=== PATIENT | female | born 1950 | race Hispanic/Latino ===

== ENCOUNTER 2017-07-13 02:24 | Emergency (ER) | payer MEDICARE, OTHER ==
[~2017-07-13] VITALS: Ht 149.9 cm; Wt 59.4 kg
[~2017-07-13 02:24] MED LIST: LEVOTHYROXINE75 MCG PO; NEXIUM40 MG PO; OMEPRAZOLE40 MG PO; PEPCID20 MG PO; PYLERA CAPSULE1 EACH PO; QUESTRAN PACKET4 GM PO; ZYRTEC10 MG PO
[2017-07-13] MEDS ORDERED: PANTOPRAZOLE 40 MG 10ML VIAL IV STA (02:28)
[2017-07-13] MEDS ORDERED: SODIUM CHLORIDE 0.9% 1000ML 1,000 ML IV STA (02:28)
[2017-07-13] MEDS ORDERED: ONDANSETRON HCL INJ 2 MG/ML VIAL IV STA (02:28)
[2017-07-13] MEDS ORDERED: ACETAMINOPHEN 1000 MG/100 ML IV STA (02:28)
[2017-07-13] MEDS ORDERED: KETOROLAC TROMETHAMINE 30 MG/ML VIAL IV STA (02:28)
[2017-07-13 03:01] LABS: HEMOGLOBIN 14.7 g/dL (12.0-16.0); MEAN CORPUSCULAR HEMOGLOBIN 31.3 pg (28-32); MEAN CORPUSCULAR HGB CONC 34.2 g/dL (31-35); MEAN CORPUSCULAR VOLUME 91.5 fL (81-99); PLATELET COUNT 222 x10e3/uL (140-360); RED CELL DISTRIBUTION WIDTH 12.8 % (11.7-14.4)
[2017-07-13 03:02] LABS: BASOPHILS % 0.4 % (0.0-1.0); EOSINOPHILS % 0.4 % (0.0-6.0); LYMPHOCYTES # (AUTO) 0.7 (1.0-3.2); LYMPHOCYTES % 6.6 % (18.0-39.1); MONOCYTES # (AUTO) 1.1 (0.2-0.8); MONOCYTES % 10.3 % (4.4-11.3); NEUTROPHILS # (AUTO) 8.3 (2.1-6.9); NEUTROPHILS % 81.7 % (38.7-80.0)
--- NOTE | 2017-07-13 03:02 | Diagnostic Imaging Report ---
EXAM: CHEST 2 VIEWS, PA and lateral DATE: 07/13/2017 2:28 AM Time stamp on exam: 2330 hours INDICATION: Cough, fever, bodyaches COMPARISON: None FINDINGS: LINES/TUBES: None LUNGS: No consolidations or edema. PLEURA: No effusions or pneumothorax. HEART AND MEDIASTINUM: Normal size and contour. BONES AND SOFT TISSUES: No acute findings. Surgical clips right upper quadrant of the abdomen. IMPRESSION: No consolidative pneumonia. Signed by: Dr. Clarissa Manriquez M.D. on 07/13/2017 2:59 AM
[2017-07-13 03:14] LABS: INR 0.95; PROTHROMBIN TIME 13.2 seconds (11.9-14.5)
[2017-07-13 03:15] LABS: PARTIAL THROMBOPLASTIN TIME 37.7 seconds (23.8-35.5)
[2017-07-13 03:18] LABS: STREPTOCOCCUS GRP A ANTIGEN NEGATIVE (NEGATIVE)
[2017-07-13 03:20] LABS: ALANINE AMINOTRANSFERASE 26 IU/L (0-55); ALBUMIN 4.2 g/dL (3.5-5.0); ALKALINE PHOSPHATASE 67 IU/L (40-150); BLOOD UREA NITROGEN 11 mg/dL (7-26); BUN/CREATININE RATIO 13 (6-25); CALCIUM 9.4 mg/dL (8.4-10.2); CHLORIDE 104 mmol/L (98-107); CREATINE KINASE 71 IU/L (29-168); CREATININE, SERUM 0.85 mg/dL (0.57-1.11); EST GLOMERULAR FILTRATION RATE > 60 ML/MIN (60-); GLUCOSE 144 mg/dL (74-118); MAGNESIUM 2.2 MG/DL (1.3-2.1); SODIUM 137 mmol/L (136-145)
[2017-07-13 03:28] LABS: INFLUENZAE A&B ANTIGEN (RAPID) POSITIVE FLU A (NEGATIVE)
[2017-07-13 03:54] LABS: CARBON DIOXIDE 20 mmol/L (22-29)
[2017-07-13 04:18] LABS: THYROID STIMULATING HORMONE 2.756 uIU/mL (0.350-4.940); TROPONIN I 0.002 ng/mL (0-0.300)
== END 2017-07-13 05:41 | disposition home or self-care (01) ==
LOC: ER 02:24
DX: R50.9 Fever, unspecified (principal); R05 Cough; J09.X2 Influenza due to identified novel influenza A virus with other respiratory manifestations; I10 Essential (primary) hypertension; E03.9 Hypothyroidism, unspecified
CPT/HCPCS: 36415; 71020; 80053; 82550; 82553; 83518; 83605; 83735; 84443; 84484; 85025; 85610; 85730; 87040; 87070; 87400; 93005; 99284; J1885; J2405; J7030

== ENCOUNTER 2017-07-19 16:40 | Emergency (ER) | payer MEDICARE ==
[~2017-07-19] VITALS: Ht 149.9 cm; Wt 61.2 kg
[2017-07-19] MEDS ORDERED: PROAIR HFA INH8.5 GM INH (17:17)
[2017-07-19] MEDS ORDERED: PREDNISONE20 MG PO (17:17)
== END 2017-07-19 19:30 | disposition left against medical advice (07) ==
LOC: ER 16:40
DX: R69 Illness, unspecified (principal); Z53.21 Procedure and treatment not carried out due to patient leaving prior to being seen by health care provider

== ENCOUNTER 2017-07-25 04:54 | Emergency (ER) | payer MEDICARE ==
[~2017-07-25] VITALS: Ht 149.9 cm; Wt 61.2 kg
[~2017-07-25 04:54] MED LIST changes: +PREDNISONE20 MG PO; +PROAIR HFA INH8.5 GM INH
[2017-07-25 06:33] VITALS: BP 132/80
--- NOTE | 2017-07-25 06:52 | Diagnostic Imaging Report ---
EXAMINATION: CHEST 2 VIEWS INDICATION: Cough, back pain COMPARISON: 07/12/2017 FINDINGS: TUBES and LINES: None. LUNGS: Lungs are well inflated. Lungs are clear. There is no evidence of pneumonia or pulmonary edema. PLEURA: No pleural effusion or pneumothorax. HEART AND MEDIASTINUM: The cardiomediastinal silhouette is unremarkable. BONES AND SOFT TISSUES: No acute osseous lesion. Soft tissues are unremarkable. UPPER ABDOMEN: No free air under the diaphragm. There are cholecystectomy clips. IMPRESSION: No acute thoracic abnormality. Signed by: Dr. Chriss Bernal M.D. on 07/25/2017 6:48 AM
== END 2017-07-25 06:39 | disposition home or self-care (01) ==
LOC: ER 04:54
DX: R05 Cough (principal); J30.2 Other seasonal allergic rhinitis; I10 Essential (primary) hypertension; E03.9 Hypothyroidism, unspecified; K21.9 Gastro-esophageal reflux disease without esophagitis
CPT/HCPCS: 71020; 87400; 93005; 99283

== ENCOUNTER 2017-08-17 07:03 | Emergency (ER) | payer MEDICARE ==
[~2017-08-17] VITALS: Ht 154.9 cm; Wt 62.1 kg
--- NOTE | 2017-08-17 08:12 | Diagnostic Imaging Report ---
PROCEDURE:X-RAY RIGHT SHOULDER, COMPLETE COMPARISON:None. INDICATIONS:FALL FINDINGS: There are no fractures, dislocations, lytic or blastic lesions. There is no evidence of dislocation. Mild irregularity and degenerative change about the greater tuberosity. The bones are well-mineralized. Staple overlies the cervical spine. The soft-tissues are unremarkable. CONCLUSION: No acute bony abnormality. Osiel Goff D.O. Dictated by: Osiel Goff D.O. on 08/17/2017 at 8:20 Electronically approved by: Osiel Goff D.O. on 08/17/2017 at 8:20
[2017-08-17 08:29] VITALS: BP 150/70
== END 2017-08-17 08:32 | disposition home or self-care (01) ==
LOC: ER 07:03
DX: S40.011A Contusion of right shoulder, initial encounter (principal); W06.XXXA Fall from bed, initial encounter; Y92.013 Bedroom of single-family (private) house as the place of occurrence of the external cause
CPT/HCPCS: 99283

== ENCOUNTER 2017-09-03 22:40 | Emergency (ER) | payer MEDICARE ==
[~2017-09-03] VITALS: Ht 154.9 cm; Wt 62.1 kg
--- OUTSIDE RECORDS SUMMARY | 2017-09-03 22:43 | XMS REPORT ---
Author Author [facility] Address Unknown Phone Unavailable Care Team Providers Care Container Filler Name Role Phone MAGDIEL MILLAN Unavailable Unavailable JOSE L SANTIAGO Unavailable Unavailable BETTY AN Unavailable Unavailable Problems This patient has no known problems. Allergies, Adverse Reactions, Alerts This patient has no known allergies or adverse reactions. Medications This patient has no known medications. Results Test Description Test Time Test Comments Text Results Atomic Results Result Comments SHOULDER RIGHT COMPLETE [facility] [address] [address] Patient Name: YADIRA CORONEL MR #: [id number] : 1950 Age/Sex: 67/F Req #: [id number] [facility] Physician: Ordered by: MAGDIEL MILLAN MD Report #: [id number] Location: ER Room/Bed: Procedure: [id number] DX/SHOULDER RIGHT COMPLETE Exam Date: 08/17/17 Exam Time: 0730 REPORT STATUS: Signed PROCEDURE: X- RAY RIGHT SHOULDER, COMPLETE COMPARISON: None. INDICATIONS: FALL FINDINGS: There are no fractures, dislocations, lytic or blastic lesions. There is no evidence of dislocation. Mild irregularity and degenerative change about the greater tuberosity. The bones are well- mineralized. Staple overlies the cervical spine. The soft-tissues are unremarkable. CONCLUSION: No acute bony abnormality. Rola Goff D.O. Dictated by: Rola Goff D.O. on 08/17/2017 at 8:20 Electronically approved by: Rola Goff D.O. on 08/17/2017 at 8:20 Dictated By: ROLA GOFF DO 0 Transcribed By: KENDRA on 08/17/17820 COPY TO: MAGDIEL MILLAN MD CHEST 2 V[address]WS [address] [address] Patient Name: YADIRA CORONEL MR #: [id number] : 1950 Age/Sex: 67/F Req #: [id number] Adm Physician: Ordered by: JOSE L SANTIAGO MD Report #: [id number] Location: ER Room/Bed: Procedure: [id number] DX/CHEST 2 VIEWS Exam Date: Exam Time: REPORT STATUS: Signed EXAMINATION: CHEST 2 VIEWS INDICATION: Cough, back pain COMPARISON: 07/12/2017 FINDINGS: TUBES and LINES: None. LUNGS: Lungs are well inflated. Lungs are clear. There is no evidence of pneumonia or pulmonary edema. PLEURA: No pleural effusion or pneumothorax. HEART AND MEDIASTINUM: The cardiomediastinal silhouette is unremarkable. BONES AND SOFT TISSUES: No acute osseous lesion. Soft tissues are unremarkable. UPPER ABDOMEN: No free air under the diaphragm. There are cholecystectomy clips. IMPRESSION: No acute thoracic abnormality. Signed by: Dr. Chriss Bernal M.D. on 07/25/2017 6:48 AM Dictated By: CHRISS AMOS MD 7 Transcribed By: RADHA on 07/25/17647 COPY TO: JOSE L SANTIAGO MD CHEST 2 VIEWS [address] [address] Patient Name: YADIRA CORONEL MR #: [id number] : 1950 Age/Sex: 67/F Req #: [id number] Adm Physician: Ordered by: BETTY AN MD Report #: [id number] Location: ER Room/Bed: Procedure: [id number] DX/CHEST 2 VIEWS Exam Date: 07/13/17 Exam Time: 4 REPORT STATUS: Signed EXAM: CHEST 2 VIEWS, PA and lateral DATE: 07/13/2017 2:28 AM Time stamp on exam: 2330 hours INDICATION: Cough, fever, bodyaches COMPARISON: None FINDINGS: LINES/TUBES: None LUNGS: No consolidations or edema. PLEURA: No effusions or pneumothorax. HEART AND MEDIASTINUM: Normal size and contour. BONES AND SOFT TISSUES: No acute findings. Surgical clips right upper quadrant of the abdomen. IMPRESSION : No consolidative pneumonia. Signed by: Dr. Chava Manriquez M.D. on 07/13/2017 2:59 AM Dictated By: CHAVA MANRIQUEZ MD 8 Transcribed By: RADHA on 258 COPY TO: BETTY AN MD
--- OUTSIDE RECORDS SUMMARY | 2017-09-03 22:43 | XMS REPORT | Clinical Summary ---
Author Author [facility] Address Unknown Phone Unavailable Care Team Providers Care Registered Safety Engineer Name Role Phone PCP Unavailable Allergies Active Allergy Reactions Severity Noted Date Comments Amoxicillin Hives 12/03/2016 itching Sulfamethoxazole-Trimetho Hives 12/03/2016 Itching prim Clindamycin Hives 12/03/2016 itching Doxycycline Hives 12/03/2016 itching Metronidazole Hcl Hives 12/03/2016 itching Levofloxacin Hives 12/03/2016 itching Nitrofurantoin Hives 12/03/2016 itching Monohyd/M-Cryst Penicillins Hives 12/03/2016 itching Current Medications Prescription Sig. Disp. Refills Start End Date Status Date levothyroxine (SYNTHROID, Take 175 mcg by mouth 12/05/19 Discontin LEVOTHROID) 175 MCG Every morning on an empty 17 ued tabletIndications: stomach. hypothyroidism Active Problems Not on file Encounters Date Type Specialty Care Team Description 12/04/2016 Anesthesia Kevin Kulkarni Event after 09/02/2016 Social History Tobacco Use Types Packs/Day Years Used Date Former Smoker Smokeless Tobacco: Never Used Tobacco Cessation: Counseling Given: No Alcohol Use Drinks/Week oz/Week Comments No Sex Assigned at Date Recorded Not on file Last Filed Vital Signs Vital Sign Reading Time Taken Blood Pressure - - Pulse - - Temperature - - Respiratory Rate - - Oxygen Saturation - - Inhaled Oxygen - - Concentration Weight 59.4 kg (131 lb) 12/03/2016 12:00 PM CDT Height 154.9 cm (5' 1") 12/03/2016 12:00 PM CDT Body Mass Index 24.75 12/03/2016 12:00 PM CDT Plan of Treatment Not on file Results Not on fileafter 09/02/2016
[2017-09-03] MEDS ORDERED: FAMOTIDINE 20 MG TAB PO ONE (23:00)
[2017-09-03] MEDS ORDERED: METHYLPREDNISOLONE SOD SUCC 125 MG/2ML VIAL IM ONE (23:00)
== END 2017-09-03 23:54 | disposition home or self-care (01) ==
LOC: ER 22:40
DX: R21 Rash and other nonspecific skin eruption (principal); I10 Essential (primary) hypertension; E03.9 Hypothyroidism, unspecified; K21.9 Gastro-esophageal reflux disease without esophagitis
CPT/HCPCS: 99283; J2930

== ENCOUNTER 2017-09-04 14:45 | Emergency (ER) | payer MEDICARE ==
[~2017-09-04] VITALS: Ht 154.9 cm; Wt 62.1 kg
--- OUTSIDE RECORDS SUMMARY | 2017-09-04 14:48 | XMS REPORT | Clinical Summary ---
Author Author [facility] Address Unknown Phone Unavailable Care Team Providers Care Wash Tank Tender Name Role Phone PCP Unavailable Allergies Active [...] Description 12/04/2016 Anesthesia Kevin Kulkarni Event after 09/03/2016 Social History Tobacco Use Types Packs/Day Years [...] Not on file Results Not on fileafter 09/03/2016
--- OUTSIDE RECORDS SUMMARY | 2017-09-04 14:48 | XMS REPORT | Continuity of Care Document ---
Author Author [facility] Organization [facility] Address [address] [place] [address] Phone Unavailable Care Team Providers Care Chimney Mechanic Name Role Phone ESPINOZA TIM M.D. PCP Insurance Providers Guarantor Yadira Munoz Address [address] [place] [address] Email NONE Payer [employer] Policy Number [id number] Subscriber's Name Yadira Munoz Relationship 18 Self / Same As Patient Effective Date 16 Payer [facility] Policy Number [id number] Subscriber's Name MunozYadira Relationship 18 Self / Same As Patient Effective Date 15 Advance Directives Directive Response Recorded Date/Time Does the patient have an advance directive? No 06/09/15 10:05pm If yes, is advance directive on file with [facility]? No 06/09/15 10:05pm If not on file with [facility] will patient provide a copy? Yes 01/02/16 6:51pm Do you have a Directive to Physician? No 09/03/17 11:21pm Do you have a Medical Power of Installers Mechanical? No 09/03/17 11:21pm Do you have an out of hospital Do Not Resuscitate Order? No 09/03/17 11:21pm Do you have any special needs we should be aware of? No 09/03/17 11:21pm Do you have a support person here with you today? Yes 09/03/17 11:21pm Did patient receive Notice of Privacy Practices? Yes 09/03/17 11:21pm Did patient receive patient rights and responsibilities? Yes 09/03/17 11:21pm Problems Medical Problem Onset Date Status Allergic reaction Unknown Acute Colitis 06/09/2015 Acute Influenza B Unknown Acute Pharyngitis Unknown Acute UTI (urinary tract infection) 06/09/2015 Acute Upper respiratory infection Unknown Acute Medications Current Home Medications Medication Dose Units Route Directions Days Qty Instructions Start Date Albuterol Sulfate (Proair Hfa Inhaler*) 8.5 Gm Inh 1 Inh Inhalation Every 4 Hours Cetirizine Hcl (Zyrtec) 10 Mg Tablet 10 Mg Oral Daily THERAPEUTICALLY SUBSTITUTED WITH LORATADINE 10MG Levothyroxine Sodium 75 Mcg Tablet 75 Mcg Oral Daily 30 Tab Omeprazole 40 Mg Capsule.dr 40 Mg Oral Daily Prednisone 20 Mg Tab 40 Mg Oral Daily Past Home Medications Medication Directions Ordered Status Bismuth/Metronid/Tetracycline (Pylera Capsule) 1 Each Capsule, 1 Cap Oral Three Times A Day Discontinued Cholestyramine (With Sugar) (Questran Packet) 4 Gm Packet, 4 Gm Oral Daily Discontinued Esomeprazole Magnesium (Nexium) 40 Mg Capsule.dr, 40 Mg Oral Daily Discontinued Famotidine (Pepcid) 20 Mg Tablet, 20 Mg Oral Twice A Day Discontinued Social History Social History Problem Response Recorded Date/Time Onset Date Status Hx Psychiatric Problems No 06/09/2015 10:05pm Not Applicable Not Applicable Hx Eating Disorder No 06/09/2015 10:05pm Not Applicable Not Applicable Hx Substance Use Disorder No 06/09/2015 10:05pm Not Applicable Not Applicable Hx Depression No 06/09/2015 10:05pm Not Applicable Not Applicable Hx Alcohol Use No 06/09/2015 10:05pm Not Applicable Not Applicable Hx Substance Use Treatment No 06/09/2015 10:05pm Not Applicable Not Applicable Hx Physical Abuse No 06/09/2015 10:05pm Not Applicable Not Applicable Smoking Status Start Date Stop Date Never Smoker Hospital Discharge Instructions No hospital discharge instruction information available. Plan of Care Discharge Date 09/03/17 11:54pm Disposition HOME, SELF-CARE Condition at Discharge Stable Instructions/Education Provided Allergic Reaction Forms Provided Work/School Excuse Prescriptions See Medication Section Additional Instructions/Education DISCONTINUE USE OF GRISEOFULVIN FOLLOW UP WITH PRIMARY CARE PHYSICIAN TOMORROW PER ER MD, TAKE OVER THE COUNTER BENADRYL AND PEPCID DIRECTED FOR NEXT 2 DAYS Functional Status No functional status information available. Allergies, Adverse Reactions, Alerts Allergen Type Severity Reaction Status Last Updated Iodinated Contrast- Oral and IV Dye Allergy Unknown ITCHING Active Penicillin Allergy Unknown ITCHING Active 08/17/17 Morphine Allergy Intermediate hives Active 08/17/17 Ampicillin Allergy Unknown ITCHING Active 08/17/17 Cephalexin Allergy Unknown ITCHING Active 08/17/17 Tetracycline Allergy Unknown ITCHING, HTN Active 08/17/17 Erythromycin base Allergy Unknown ITCHING Active 08/17/17 Nitrofurantoin Allergy Unknown ITCHING Active 08/17/17 Ciprofloxacin Allergy Severe SOB, ITCHING Active 08/17/17 Griseofulvin Allergy Intermediate Active 09/03/17 Levofloxacin Allergy Unknown ITCHING Active 08/17/17 BACTRIM] Allergy Mild ITCHING Active 04/24/16 SULFA Allergy Unknown ITCHING, HEADACHE Active 04/24/16 Immunizations No immunization information available. Vital Signs Acute Vital Signs Vital Response Date/Time Temperature (Fahrenheit) 98.1 degrees F (97.6 - 99.5) 08/17/2017 8:29am Pulse Pulse Rate (adult) 79 bpm (60 - 90) 08/17/2017 8:29am Respiratory Rate 18 bpm (12 - 24) 08/17/2017 8:29am Blood Pressure 150/70 mm Hg 08/17/2017 8:29am Height 5 ft 1 in 09/03/2017 10:59pm Weight 137 lb 09/03/2017 10:59pm Body Mass Index 25.9 kg/m^2 09/03/2017 10:59pm Results Laboratory Results Test Name Result Units Flags Reference Collection Date/Time Result Date/ Time Comments White Blood Count 10.16 x10e3/uL 4.8-10.8 07/13/2017 2:41am 07/13/2017 3:16am Red Blood Count 4.70 x10e6/uL 3.6-5.1 07/13/2017 2:41am 07/13/2017 3: 16am Hemoglobin 14.7 g/dL 12.0-16.0 07/13/2017 2:4107/13/2017 3:16am Hematocrit 43.0 % 34.2-44.1 07/13/2017 2:41am 07/13/2017 3:16am Mean Corpuscular Volume 91.5 fL 81-99 07/13/2017 2:41am 07/13/2017 3: 16am Mean Corpuscular Hemoglobin 31.3 pg 28-32 07/13/2017 2:41am 07/13/2017 3:16am Mean Corpuscular Hemoglobin Concent 34.2 g/dL 31-35 07/13/2017 2:41am 07/13/2017 3:16am Red Cell Distribution Width 12.8 % 11.7-14.4 07/13/2017 2:412016 3:16am Platelet Count 222 x10e3/uL 140-360 07/13/2017 2:4107/13/2017 3: 16am Neutrophils (%) (Auto) 81.7 % H 38.7-80.0 07/13/2017 2:4107/13/2017 3 :16am Lymphocytes (%) (Auto) 6.6 % L 18.0-39.1 07/13/2017 2:4107/13/2017 3: 16am Monocytes (%) (Auto) 10.3 % 4.4-11.3 07/13/2017 2:4107/13/2017 3: 16am Eosinophils (%) (Auto) 0.4 % 0.0-6.0 07/13/2017 2:4107/13/2017 3: 16am Basophils (%) (Auto) 0.4 % 0.0-1.0 07/13/2017 2:4107/13/2017 3:16am IM GRANULOCYTES % 0.6 % 0.0-1.0 07/13/2017 2:4107/13/2017 3:16am Neutrophils # (Auto) 8.3 H 2.1-6.9 07/13/2017 2:4107/13/2017 3: 16am Lymphocytes # (Auto) 0.7 L 1.0-3.2 07/13/2017 2:41am 07/13/2017 3: 16am Monocytes # (Auto) 1.1 H 0.2-0.8 07/13/2017 2:41am 07/13/2017 3:16am Eosinophils # (Auto) 0.0 0.0-0.4 07/13/2017 2:41am 07/13/2017 3:16am Basophils # (Auto) 0.0 0.0-0.1 07/13/2017 2:41am 07/13/2017 3:16am Absolute Immature Granulocyte (auto 0.06 x10e3/uL 0-0.1 07/13/2017 2: 41am 07/13/2017 3:16am Prothrombin Time 13.2 seconds 11.9-14.5 07/13/2017 2:41am 07/13/2017 3: 15am Prothromb Time International Ratio 0.95 07/13/2017 2:41am 2016 3:15am Oral Anticoagulant Therapy INR Values: 1. Low Intensity Therapy 1.5 - 2.0 2. Moderate Intensity Therapy 2.0 - 3.0 3. High Intensity Therapy(1) 2.5 - 3.5 4. High Intensity Therapy(2) 3.0 - 4.0 5. Panic Value INR > 5.0 Activated Partial Thromboplast Time 37.7 seconds H 23.8-35.5 07/13/2017 2 :41am 07/13/2017 3:16am Sodium Level 137 mmol/L 136-145 07/13/2017 2:41am 07/13/2017 3:26am Potassium Level 4.0 mmol/L 3.5-5.1 07/13/2017 2:4107/13/2017 3:26am Chloride Level 104 mmol/L 98-107 07/13/2017 2:41am 07/13/2017 3:26am Carbon Dioxide Level 20 mmol/L L 22-29 07/13/2017 2:41am 07/13/2017 4: 00am Anion Gap 17.0 mmol/L H 8-16 07/13/2017 2:41am 07/13/2017 4:00am Blood Urea Nitrogen 11 mg/dL 7-07/13/2017 2:41am 07/13/2017 3:26am Creatinine 0.85 mg/dL 0.57-1.11 07/13/2017 2:41am 07/13/2017 3:26am BUN/Creatinine Ratio 13 6-07/13/2017 2:41am 07/13/2017 3:26am Estimat Glomerular Filtration Rate > 60 ML/MIN 60- 07/13/2017 2:41am 3:26am Ranges were taken from the National Kidney Disease Education Program and the National Kidney Foundation literature. Reference ranges: 60 or greater: Normal 16-59 (for 3 consecutive months): Chronic kidney disease 15 or less: Kidney failure Glucose Level 144 mg/dL H 74-118 07/13/2017 2:41am 07/13/2017 3:26am Calcium Level 9.4 mg/dL 8.4-10.2 07/13/2017 2:41am 07/13/2017 3:26am Lactic Acid Level 9.7 MG/DL 4.5-19.8 07/13/2017 2:4107/13/2017 3: 18am Magnesium Level 2.2 MG/DL H 1.3-2.1 07/13/2017 2:4107/13/2017 3:26am Total Bilirubin 0.4 mg/dL 0.2-1.2 07/13/2017 2:41am 07/13/2017 3:26am Aspartate Amino Transf (AST/SGOT) 30 IU/L 5-34 07/13/2017 2:41am 2016 3:26am Alanine Aminotransferase (ALT/SGPT) 26 IU/L 0-55 07/13/2017 2:41am 3:26am Total Protein 8.4 g/dL H 6.5-8.1 07/13/2017 2:41am 07/13/2017 3:26am Albumin 4.2 g/dL 3.5-5.0 07/13/2017 2:41am 07/13/2017 3:26am Globulin 4.2 g/dL H 2.3-3.5 07/13/2017 2:41am 07/13/2017 3:26am Albumin/Globulin Ratio 1.0 0.8-2.0 07/13/2017 2:41am 07/13/2017 3: 26am Alkaline Phosphatase 67 IU/L 40-150 07/13/2017 2:41am 07/13/2017 3: 26am Creatine Kinase 71 IU/L 29-168 07/13/2017 2:41am 07/13/2017 3:26am Creatine Kinase MB 0.50 ng/mL 0.00-5.00 07/13/2017 2:41am 07/13/2017 4: 42am Troponin I 0.002 ng/mL 0-0.300 07/13/2017 2:41am 07/13/2017 4:42am Thyroid Stimulating Hormone (TSH) 2.756 uIU/mL 0.350-4.940 07/13/2017 2: 41am 07/13/2017 4:42am Group A Streptococcus Screen NEGATIVE NEGATIVE 07/13/2017 2:41am 3:18am Influenza Virus Types A,B Antigen NEGATIVE NEGATIVE 07/25/2017 5:07am 07/25/2017 6:11am Microbiology Results Procedure Source Organism/Result Collection Date/Time Result Date/Time Result Status Blood Culture Blood NO GROWTH AFTER 5 DAYS, FINAL REPORT 07/13/2017 2:41am 07/18/2017 2:59am Final Procedures Procedure Status Date Provider(s) X-ray of chest, two views Active 07/13/17 BETTY AN MD X-ray of chest, two views Active 07/25/17 JOSE L SANTIAGO MD Encounters Encounter Location Arrival/Admit Date Discharge/Depart Date Attending Provider Departed Emergency [facility] 09/03/17 10:40pm 09/03 11:54pm JOSE L SANTIAGO MD Departed Emergency [facility] 08/17/17 7:03am 8:32am MAGDIEL MILLAN MD Departed Emergency [facility] 07/25/17 4:54am 6:39am JOSE L SANTIAGO MD Departed Emergency [facility] 07/19/17 4:40pm 7:30pm NUNO ARREOLA MD Departed Emergency Room [facility] 07/13/17 2:24am 5:41am BETTY AN MD Departed Emergency [facility] 11/24/16 8:37pm 1:41am JOSE L SANTIAGO MD
[2017-09-04] MEDS ORDERED: ASPIRIN 81 MG CHEW TAB PO ONE (17:00)
--- NOTE | 2017-09-04 17:58 | Diagnostic Imaging Report ---
PROCEDURE: Frontal and lateral views of the chest. COMPARISON: [facility], , CHEST 2 VIEWS, 07/25/2017, 6:05. INDICATIONS: CHEST PAIN FINDINGS: Lines/tubes: None. Lungs: The lungs are well inflated and clear. There is no evidence of pneumonia or pulmonary edema. Pleura: There is no pleural effusion or pneumothorax. Heart and mediastinum: The cardiac silhouette is mildly enlarged. Bones: No acute bony abnormality. Mild multilevel spondylosis of the thoracic spine. Cholecystectomy clips. IMPRESSION: 1. No acute thoracic abnormality Dori Yanes M.D. Dictated by: Dori Yanes M.D. on 09/04/2017 at 17:57 Electronically approved by: Dori Yanes M.D. on 09/04/2017 at 17:57
[2017-09-04 19:45] LABS: BASOPHILS % 0.1 % (0.0-1.0); HEMATOCRIT 40.3 % (34.2-44.1); HEMOGLOBIN 13.8 g/dL (12.0-16.0); LYMPHOCYTES # (AUTO) 1.4 (1.0-3.2); LYMPHOCYTES % 14.1 % (18.0-39.1); MEAN CORPUSCULAR HEMOGLOBIN 31.4 pg (28-32); MEAN CORPUSCULAR HGB CONC 34.2 g/dL (31-35); MEAN CORPUSCULAR VOLUME 91.6 fL (81-99); MONOCYTES # (AUTO) 0.3 (0.2-0.8); MONOCYTES % 2.7 % (4.4-11.3); NEUTROPHILS % 82.1 % (38.7-80.0); PLATELET COUNT 316 x10e3/uL (140-360); RED CELL DISTRIBUTION WIDTH 12.9 % (11.7-14.4)
[2017-09-04 19:46] LABS: BILIRUBIN,URINE NEGATIVE (NEGATIVE); CLARITY,URINE CLEAR (CLEAR); COLOR,URINE YELLOW (YELLOW); KETONES,URINE NEGATIVE (NEGATIVE); LEUKOCYTE ESTERASE ,URINE TRACE (NEGATIVE); NITRITE,URINE NEGATIVE (NEGATIVE); PROTEIN,URINE DIPSTICK NEGATIVE (NEGATIVE); URINE UROBILINOGEN 0.2 mg/dL (0.2 - 1)
[2017-09-04 19:51] LABS: INR 1.06
[2017-09-04 19:52] LABS: PARTIAL THROMBOPLASTIN TIME 33.6 seconds (23.8-35.5)
[2017-09-04 19:58] LABS: EPITHELIAL CELLS,URINE MODERATE /LPF; WBC,URINE (MAN) 0-5 /HPF (0-5)
[2017-09-04 20:01] LABS: ALANINE AMINOTRANSFERASE 17 IU/L (0-55); ALBUMIN 4.4 g/dL (3.5-5.0); ALKALINE PHOSPHATASE 69 IU/L (40-150); ANION GAP 14.9 mmol/L (8-16); BLOOD UREA NITROGEN 12 mg/dL (7-26); BUN/CREATININE RATIO 16 (6-25); CALCIUM 9.6 mg/dL (8.4-10.2); CARBON DIOXIDE 20 mmol/L (22-29); CHLORIDE 109 mmol/L (98-107); CREATINE KINASE 134 IU/L (29-168); CREATININE, SERUM 0.75 mg/dL (0.57-1.11); EST GLOMERULAR FILTRATION RATE > 60 ML/MIN (60-); GLUCOSE 174 mg/dL (74-118); LIPASE 9 U/L (8-78); MAGNESIUM 2.3 MG/DL (1.3-2.1); POTASSIUM 3.9 mmol/L (3.5-5.1); SODIUM 140 mmol/L (136-145)
[2017-09-04 21:12] VITALS: BP 139/84
== END 2017-09-04 21:16 | disposition home or self-care (01) ==
LOC: ER 14:45
DX: R07.89 Other chest pain (principal); I10 Essential (primary) hypertension; E07.9 Disorder of thyroid, unspecified; K21.9 Gastro-esophageal reflux disease without esophagitis
CPT/HCPCS: 36415; 71046; 80053; 81001; 82550; 82553; 83690; 83735; 83880; 84484; 85025; 85610; 85730; 87086; 93005; 99283

== ENCOUNTER → 2017-09-04 | Emergency (ER) | payer MEDICARE ==
--- OUTSIDE RECORDS SUMMARY | 2017-09-04 14:55 | XMS REPORT | Clinical Summary ---
Author Author [facility] Address Unknown Phone Unavailable Care Team Providers Care Rn Operating Room Name Role Phone PCP Unavailable Allergies Active [...]
== END | disposition left against medical advice (07) ==
LOC: ER 14:52
DX: R07.9 Chest pain, unspecified (principal)

== ENCOUNTER 2017-10-16 13:11 | Emergency (ER) | payer MEDICARE, OTHER ==
[~2017-10-16] VITALS: Ht 154.9 cm; Wt 62.1 kg
--- OUTSIDE RECORDS SUMMARY | 2017-10-16 13:14 | XMS REPORT | Clinical Summary ---
Author Author [facility] Address Unknown Phone Unavailable Care Team Providers Care Labor Training Manager Name Role Phone PCP Unavailable Allergies Active [...] Description 12/04/2016 Anesthesia Kevin Kulkarni Event after 10/15/2016 Social History Tobacco Use Types Packs/Day Years [...] Not on file Results Not on fileafter 10/15/2016
[2017-10-16] MEDS ORDERED: ONDANSETRON HCL INJ 2 MG/ML VIAL IV STA (14:06)
[2017-10-16] MEDS ORDERED: DIPHENHYDRAMINE HCL INJ 50 MG/ML VIAL IV SCH (14:15)
[2017-10-16] MEDS ORDERED: FAMOTIDINE 20 MG/2 ML VIAL IV SCH (14:15)
[2017-10-16] MEDS ORDERED: METHYLPREDNISOLONE SOD SUCC 125 MG/2ML VIAL IV SCH (14:15)
[2017-10-16 16:09] VITALS: BP 139/84
== END 2017-10-16 16:20 | disposition home or self-care (01) ==
LOC: ER 13:11
DX: L50.9 Urticaria, unspecified (principal); I10 Essential (primary) hypertension; K21.9 Gastro-esophageal reflux disease without esophagitis
CPT/HCPCS: 99283; J1200; J2405; J2930

== ENCOUNTER 2017-11-06 14:05 | Emergency (ER) | payer MEDICARE ==
[~2017-11-06] VITALS: Ht 154.9 cm; Wt 62.1 kg
--- OUTSIDE RECORDS SUMMARY | 2017-11-06 14:08 | XMS REPORT | Clinical Summary ---
Author Author [facility] Address Unknown Phone Unavailable Care Team Providers Care Glue Plant Operator Name Role Phone PCP Unavailable Allergies Active [...] Description 12/04/2016 Anesthesia Kevin Kulkarni Event after 11/05/2016 Social History Tobacco Use Types Packs/Day Years [...] Not on file Results Not on fileafter 11/05/2016
--- OUTSIDE RECORDS SUMMARY | 2017-11-06 14:08 | XMS REPORT | Continuity of Care Document ---
Author Author [facility] Organization [facility] Address [address] [place] [address] Phone Unavailable Care Team Providers Care Production Control Clerk Name Role Phone ESPINOZA TIM M.D. PCP Insurance Providers Guarantor Yadira Munoz Address [address] [place] [address] Email NONE Payer [employer] Policy Number [id number] Subscriber's Name Yadira Munoz Relationship 18 Self / Same As Patient Effective Date 16 Payer [facility] Policy Number [id number] Subscriber's Name MunozYadira Relationship 18 Self / Same As Patient Effective Date 15 Advance Directives Directive Response Recorded Date/Time Does the patient have an advance directive? No 06/09/15 10:05pm If yes, is advance directive on file with [facility]? No 06/09/15 10:05pm If not on file with [facility] will patient provide a copy? Yes 01/02/16 6:51pm Problems Medical Problem Onset Date Status Allergic [...] No 06/09/2015 10:05pm Not Applicable Not Applicable Hospital Discharge Instructions No hospital discharge instruction information available. Plan of Care Discharge Date 10/16/17 4:20pm Disposition HOME, SELF-CARE Condition at Discharge Stable Instructions/Education Provided Rash - Nonspecific Forms Provided Work/School Excuse Prescriptions See Medication Section Additional Instructions/Education FOLLOW UP WITH YOUR DOCTOR IN 3 DAYS EVEN IF FEELING BETTER TAKE ALL MEDICATION PRESCRIBED. RETURN TO ER IF WORSE IN ANY WAY Functional Status No functional status information available. Allergies, Adverse Reactions, Alerts Allergen Type Severity Reaction Status Last Updated Iodinated Contrast- Oral and IV Dye Allergy Unknown ITCHING Active Penicillin Allergy Unknown ITCHING Active 09/04/17 Morphine Allergy Intermediate hives Active 09/04/17 Ampicillin Allergy Unknown ITCHING Active 09/04/17 Cephalexin Allergy Unknown ITCHING Active 09/04/17 Tetracycline Allergy Unknown ITCHING, HTN Active 09/04/17 Erythromycin base Allergy Unknown ITCHING Active 09/04/17 Nitrofurantoin Allergy Unknown ITCHING Active 09/04/17 Ciprofloxacin Allergy Severe SOB, ITCHING Active 09/04/17 Griseofulvin Allergy Intermediate Active 09/04/17 Levofloxacin Allergy Unknown ITCHING Active 09/04/17 BACTRIM] Allergy Mild ITCHING Active 04/24/16 SULFA Allergy Unknown ITCHING, HEADACHE Active 04/24/16 Immunizations No immunization information available. Vital Signs Acute Vital Signs Vital Response Date/Time Temperature (Fahrenheit) 97.4 degrees F (97.6 - 99.5) 09/04/2017 9:12pm Pulse Pulse Rate (adult) 81 bpm (60 - 90) 10/16/2017 4:09pm Respiratory Rate 20 bpm (12 - 24) 10/16/2017 4:09pm Blood Pressure 139/84 mm Hg 10/16/2017 4:09pm Height 5 ft 1 in 10/16/2017 1:56pm Weight 137 lb 10/16/2017 1:56pm Body Mass Index 25.9 kg/m^2 10/16/2017 1:56pm Results Laboratory Results Test Name Result Units Flags Reference Collection Date/Time Result Date/ Time Comments Lactic Acid Level 9.7 MG/DL 4.5-19.8 07/13/2017 2:41am 07/13/2017 3: 18am Thyroid Stimulating Hormone (TSH) 2.756 uIU/mL 0.350-4.940 07/13/2017 2: 41am 07/13/2017 4:42am Group A Streptococcus Screen NEGATIVE NEGATIVE 07/13/2017 2:41am 3:18am Influenza Virus Types A,B Antigen NEGATIVE NEGATIVE 07/25/2017 5:07am 07/25/2017 6:11am White Blood Count 9.73 x10e3/uL 4.8-10.8 09/04/2017 7:12pm 09/04/2017 7 :47pm Red Blood Count 4.40 x10e6/uL 3.6-5.1 09/04/2017 7:12pm 09/04/2017 7: 47pm Hemoglobin 13.8 g/dL 12.0-16.0 09/04/2017 7:12pm 09/04/2017 7:47pm Hematocrit 40.3 % 34.2-44.1 09/04/2017 7:09/04/2017 7:47pm Mean Corpuscular Volume 91.6 fL 81-99 09/04/2017 7:09/04/2017 7: 47pm Mean Corpuscular Hemoglobin 31.4 pg 28-32 09/04/2017 7:09/04/2017 7:47pm Mean Corpuscular Hemoglobin Concent 34.2 g/dL 31-35 09/04/2017 7:09/04/2017 7:47pm Red Cell Distribution Width 12.9 % 11.7-14.4 09/04/2017 7:2017 7:47pm Platelet Count 316 x10e3/uL 140-360 09/04/2017 7:09/04/2017 7: 47pm Neutrophils (%) (Auto) 82.1 % H 38.7-80.0 09/04/2017 7:09/04/2017 7 :47pm Lymphocytes (%) (Auto) 14.1 % L 18.0-39.1 09/04/2017 7:09/04/2017 7 :47pm Monocytes (%) (Auto) 2.7 % L 4.4-11.3 09/04/2017 7:09/04/2017 7: 47pm Eosinophils (%) (Auto) 0.0 % 0.0-6.0 09/04/2017 7:09/04/2017 7: 47pm Basophils (%) (Auto) 0.1 % 0.0-1.0 09/04/2017 7:09/04/2017 7:47pm IM GRANULOCYTES % 1.0 % 0.0-1.0 09/04/2017 7:09/04/2017 7:47pm Neutrophils # (Auto) 8.0 H 2.1-6.9 09/04/2017 7:09/04/2017 7: 47pm Lymphocytes # (Auto) 1.4 1.0-3.2 09/04/2017 7:09/04/2017 7:47pm Monocytes # (Auto) 0.3 0.2-0.8 09/04/2017 7:09/04/2017 7:47pm Eosinophils # (Auto) 0.0 0.0-0.4 09/04/2017 7:12pm 09/04/2017 7:47pm Basophils # (Auto) 0.0 0.0-0.1 09/04/2017 7:12pm 09/04/2017 7:47pm Absolute Immature Granulocyte (auto 0.10 x10e3/uL 0-0.1 09/04/2017 7: 12pm 09/04/2017 7:47pm Prothrombin Time 13.0 seconds 11.9-14.5 09/04/2017 7:12pm 09/04/2017 7: 52pm Prothromb Time International Ratio 1.06 09/04/2017 7:12pm 2017 7:52pm Oral Anticoagulant Therapy INR Values: 1. Low Intensity Therapy 1.5 - 2.0 2. Moderate Intensity Therapy 2.0 - 3.0 3. High Intensity Therapy(1) 2.5 - 3.5 4. High Intensity Therapy(2) 3.0 - 4.0 5. Panic Value INR > 5.0 Activated Partial Thromboplast Time 33.6 seconds 23.8-35.5 09/04/2017 7: 12pm 09/04/2017 7:52pm Urine Color YELLOW YELLOW 09/04/2017 6:50pm 09/04/2017 7:46pm Urine Clarity CLEAR CLEAR 09/04/2017 6:50pm 09/04/2017 7:46pm Urine Specific Basco 1.015 1.010-1.025 09/04/2017 6:50pm 2017 7:46pm Urine pH 6.5 5 - 7 09/04/2017 6:50pm 09/04/2017 7:46pm Urine Leukocyte Esterase TRACE H NEGATIVE 09/04/2017 6:50pm 2017 7:46pm Urine Nitrite NEGATIVE NEGATIVE 09/04/2017 6:50pm 09/04/2017 7:46pm Urine Protein NEGATIVE NEGATIVE 09/04/2017 6:50pm 09/04/2017 7:46pm Urine Glucose (UA) NEGATIVE NEGATIVE 09/04/2017 6:50pm 09/04/2017 7: 46pm Urine Ketones NEGATIVE NEGATIVE 09/04/2017 6:50pm 09/04/2017 7:46pm Urine Urobilinogen 0.2 mg/dL 0.2 - 1 09/04/2017 6:50pm 09/04/2017 7: 46pm Urine Bilirubin NEGATIVE NEGATIVE 09/04/2017 6:50pm 09/04/2017 7: 46pm Urine Blood NEGATIVE NEGATIVE 09/04/2017 6:50pm 09/04/2017 7:46pm Urine WBC 0-5 /HPF 0-5 09/04/2017 6:50pm 09/04/2017 7:58pm Urine RBC NONE /HPF 0-5 09/04/2017 6:50pm 09/04/2017 7:58pm Urine Bacteria NONE /HPF NONE 09/04/2017 6:50pm 09/04/2017 7:58pm Urine Epithelial Cells MODERATE /LPF NONE 09/04/2017 6:50pm 09/04/2017 7:58pm Sodium Level 140 mmol/L 136-145 09/04/2017 7:12pm 09/04/2017 8:01pm Potassium Level 3.9 mmol/L 3.5-5.1 09/04/2017 7:12pm 09/04/2017 8:01pm Chloride Level 109 mmol/L H 98-107 09/04/2017 7:12p09/04/2017 8:01pm Carbon Dioxide Level 20 mmol/L L -09/04/2017 7:12p09/04/2017 8: 01pm Anion Gap 14.9 mmol/L 8-09/04/2017 7:12p09/04/2017 8:01pm Blood Urea Nitrogen 12 mg/dL 7-09/04/2017 7:12p09/04/2017 8:01pm Creatinine 0.75 mg/dL 0.57-1.11 09/04/2017 7:12p09/04/2017 8:01pm BUN/Creatinine Ratio 16 6-25 09/04/2017 7:12p09/04/2017 8:01pm Estimat Glomerular Filtration Rate > 60 ML/MIN 60- 09/04/2017 7:12p 8:01pm Ranges were taken from the National Kidney Disease Education Program and the National Kidney Foundation literature. Reference ranges: 60 or greater: Normal 16-59 (for 3 consecutive months): Chronic kidney disease 15 or less: Kidney failure Glucose Level 174 mg/dL H 74-118 09/04/2017 7:12pm 09/04/2017 8:01pm Calcium Level 9.6 mg/dL 8.4-10.2 09/04/2017 7:09/04/2017 8:01pm Magnesium Level 2.3 MG/DL H 1.3-2.1 09/04/2017 7:09/04/2017 8:01pm Total Bilirubin 0.4 mg/dL 0.2-1.2 09/04/2017 7:09/04/2017 8:01pm Aspartate Amino Transf (AST/SGOT) 17 IU/L 5-34 09/04/2017 7:2017 8:01pm Alanine Aminotransferase (ALT/SGPT) 17 IU/L 0-55 09/04/2017 7: 8:01pm Total Protein 8.6 g/dL H 6.5-8.1 09/04/2017 7:09/04/2017 8:01pm Albumin 4.4 g/dL 3.5-5.0 09/04/2017 7:09/04/2017 8:01pm Globulin 4.2 g/dL H 2.3-3.5 09/04/2017 7:09/04/2017 8:01pm Albumin/Globulin Ratio 1.0 0.8-2.0 09/04/2017 7:09/04/2017 8: 01pm Alkaline Phosphatase 69 IU/L 40-150 09/04/2017 7:09/04/2017 8: 01pm B-Type Natriuretic Peptide 14.0 pg/mL 0-100 09/04/2017 7:2017 8:05pm Creatine Kinase 134 IU/L 29-168 09/04/2017 7:09/04/2017 8:01pm Creatine Kinase MB 1.10 ng/mL 0-5.0 09/04/2017 7:09/04/2017 8: 07pm Troponin I < 0.00 ng/mL L 0.0-0.78 09/04/2017 7:09/04/2017 8:07pm Lipase 9 U/L 8-78 09/04/2017 7:09/04/2017 8:01pm Microbiology Results Procedure Source Organism/Result Collection Date/Time Result Date/Time Result Status Blood Culture Blood NO GROWTH AFTER 5 DAYS, FINAL REPORT 07/13/2017 2:41am 07/18/2017 2:59am Final Procedures Procedure Status Date Provider(s) X-ray of chest, two views Active 07/13/17 BETTY AN MD X-ray of chest, two views Active 07/25/17 JOSE L SANTIAGO MD X-ray of chest, two views Active 09/04/17 STUART NINA Encounters Encounter Location Arrival/Admit Date Discharge/Depart Date Attending Provider Departed Emergency Room [facility] 10/16/17 1:11pm 4:20pm JERRICA GEE MD Registered Emergency [facility] 09/04/17 2:52pm ANISH WOODS MD Departed Emergency [facility] 09/04/17 2:45pm 9:16pm ANISH WOODS MD Departed Emergency [facility] 09/03/17 10:40pm 09/03 11:54pm JOSE L SANTIAGO MD Departed Emergency [facility] 08/17/17 7:03am 8:32am MAGDIEL MILLAN MD Departed Emergency [facility] 07/25/17 4:54am 6:39am JOSE L SANTIAGO MD Departed Emergency [facility] 07/19/17 4:40pm 7:30pm NUNO ARREOLA MD Departed Emergency [facility] 07/13/17 2:24am 5:41am BETTY AN MD
[2017-11-06] MEDS ORDERED: DIPHENHYDRAMINE HCL INJ 50 MG/ML VIAL IV ONE (14:45)
== END 2017-11-06 14:39 | disposition left against medical advice (07) ==
LOC: ER 14:05
DX: M54.9 Dorsalgia, unspecified (principal)
CPT/HCPCS: 99281

== ENCOUNTER 2018-01-05 13:42 | Emergency (ER) | payer MEDICARE ==
[~2018-01-05] VITALS: Ht 154.9 cm; Wt 59.4 kg
[2018-01-05] MEDS ORDERED: IPRATROPIUM BROMIDE 0.02% 2.5 ML NEB NEB STA (14:23)
[2018-01-05] MEDS ORDERED: ALBUTEROL SULF 0.083% NEB SOLN 3 ML NEB NEB STA (14:23)
[2018-01-05] MEDS ORDERED: ASPIRIN 81 MG CHEW TAB PO ONE (14:30)
--- NOTE | 2018-01-05 15:25 | Diagnostic Imaging Report ---
PROCEDURE: Frontal and lateral views of the chest. COMPARISON: [facility], , CHEST 2 VIEWS, 09/04/2017, 17:41. INDICATIONS: CHEST PAIN FINDINGS: Lines/tubes: None. Lungs: The lungs are well inflated and clear. There is no evidence of pneumonia or pulmonary edema. Pleura: There is no pleural effusion or pneumothorax. Heart and mediastinum: The heart and the mediastinum are normal. Bones: No acute bony abnormality. IMPRESSION: 1. No acute cardiopulmonary abnormalities. Reinaldo Cancino M.D. Dictated by: Reinaldo Cancino M.D. on 01/05/2018 at 15:28 Electronically approved by: Reinaldo Cancino M.D. on 01/05/2018 at 15:28
[2018-01-05 16:40] LABS: BASOPHILS % 0.5 % (0.0-1.0); EOSINOPHILS # (AUTO) 0.1 (0.0-0.4); EOSINOPHILS % 1.4 % (0.0-6.0); HEMATOCRIT 39.6 % (34.2-44.1); HEMOGLOBIN 13.3 g/dL (12.0-16.0); LYMPHOCYTES # (AUTO) 2.6 (1.0-3.2); MEAN CORPUSCULAR HEMOGLOBIN 31.7 pg (28-32); MEAN CORPUSCULAR HGB CONC 33.6 g/dL (31-35); MEAN CORPUSCULAR VOLUME 94.3 fL (81-99); MONOCYTES # (AUTO) 0.6 (0.2-0.8); MONOCYTES % 7.1 % (4.4-11.3); NEUTROPHILS # (AUTO) 5.2 (2.1-6.9); PLATELET COUNT 265 x10e3/uL (140-360); RED CELL DISTRIBUTION WIDTH 12.1 % (11.7-14.4)
[2018-01-05 16:53] LABS: PROTHROMBIN TIME 12.4 seconds (11.9-14.5)
[2018-01-05 16:54] LABS: PARTIAL THROMBOPLASTIN TIME 33.9 seconds (23.8-35.5)
[2018-01-05 17:02] LABS: ALANINE AMINOTRANSFERASE 17 IU/L (0-55); ALBUMIN 4.1 g/dL (3.5-5.0); ALBUMIN/GLOBULIN RATIO 1.1 (0.8-2.0); ALKALINE PHOSPHATASE 82 IU/L (40-150); ANION GAP 11.9 mmol/L (8-16); BLOOD UREA NITROGEN 13 mg/dL (7-26); BUN/CREATININE RATIO 16 (6-25); CALCIUM 9.4 mg/dL (8.4-10.2); CARBON DIOXIDE 26 mmol/L (22-29); CHLORIDE 107 mmol/L (98-107); CREATINE KINASE 56 IU/L (29-168); CREATININE, SERUM 0.81 mg/dL (0.57-1.11); EST GLOMERULAR FILTRATION RATE > 60 ML/MIN (60-); GLUCOSE 116 mg/dL (74-118); POTASSIUM 3.9 mmol/L (3.5-5.1); SODIUM 141 mmol/L (136-145)
[2018-01-05 17:40] LABS: BILIRUBIN,URINE NEGATIVE (NEGATIVE); CLARITY,URINE CLEAR (CLEAR); COLOR,URINE STRAW (YELLOW); KETONES,URINE NEGATIVE (NEGATIVE); LEUKOCYTE ESTERASE ,URINE TRACE (NEGATIVE); NITRITE,URINE NEGATIVE (NEGATIVE); PROTEIN,URINE DIPSTICK NEGATIVE (NEGATIVE); URINE UROBILINOGEN 0.2 mg/dL (0.2 - 1)
[2018-01-05 17:56] LABS: EPITHELIAL CELLS,URINE RARE /LPF; MUCUS,URINE FEW (RARE); RBC,URINE 0-5 /HPF (0-5)
[2018-01-05 18:29] VITALS: BP 125/68
== END 2018-01-05 18:33 | disposition home or self-care (01) ==
LOC: ER 13:42
DX: R05 Cough (principal); R06.00 Dyspnea, unspecified; J40 Bronchitis, not specified as acute or chronic
CPT/HCPCS: 36415; 71046; 80053; 81001; 82550; 82553; 83880; 84484; 85025; 85610; 85730; 87086; 93005; 94640; 99284

== ENCOUNTER 2018-03-29 04:23 | Emergency (ER) | payer MEDICARE ==
[~2018-03-29] VITALS: Ht 154.9 cm; Wt 59.4 kg
[2018-03-29] MEDS ORDERED: PREDNISONE 20 MG TAB PO ONE (04:45)
== END 2018-03-29 06:04 | disposition left against medical advice (07) ==
LOC: ER 04:23
DX: T78.40XA Allergy, unspecified, initial encounter (principal)

== ENCOUNTER 2018-05-31 00:20 | Emergency (ER) | payer MEDICARE ==
[~2018-05-31] VITALS: Ht 154.9 cm; Wt 59.4 kg
--- OUTSIDE RECORDS SUMMARY | 2018-05-31 00:22 | XMS REPORT | Clinical Summary ---
Author Author [facility] Address Unknown Phone Unavailable Care Team Providers Care Permit Specialist Name Role Phone PCP Unavailable Allergies Comments Active Allergy Reactions Severity Noted Date itching Amoxicillin Hives 12/03/2016 Itching Sulfamethoxazole-Trimetho Hives 12/03/2016 prim itching Clindamycin Hives 12/03/2016 itching Doxycycline Hives 12/03/2016 itching Metronidazole Hcl Hives 12/03/2016 itching Levofloxacin Hives 12/03/2016 itching Nitrofurantoin Hives 12/03/2016 Monohyd/M-Cryst itching Penicillins Hives 12/03/2016 Medications No known medications Active Problems Not on file Social History Date Tobacco Use Types Packs/Day Years Used Former Smoker Smokeless Tobacco: Never Used Tobacco Cessation: Counseling Given: No Alcohol Use Drinks/Week oz/Week Comments No Sex Assigned at Date Recorded Not on file Industry Job Start Date Occupation Not on file Not on file Not on file Travel End Travel History Travel Start No recent travel history available. Last Filed Vital Signs Not on file Plan of Treatment Not on file Results Not on fileafter 05/30/2017 Insurance Payer Benefit Subscriber ID Type Phone Address Plan / Group [employer] [facility] [employer] xxxxxxxxx CARE [facility] MEDICAID MEDICAID xxxxxxxxx Medicaid OF [place]
[2018-05-31] MEDS ORDERED: MECLIZINE HCL 12.5 MG TAB PO ONE (01:15)
[2018-05-31 01:53] LABS: BASOPHILS % 0.3 % (0.0-1.0); EOSINOPHILS # (AUTO) 0.1 (0.0-0.4); EOSINOPHILS % 1.5 % (0.0-6.0); HEMATOCRIT 39.3 % (34.2-44.1); HEMOGLOBIN 13.2 g/dL (12.0-16.0); LYMPHOCYTES # (AUTO) 2.9 (1.0-3.2); LYMPHOCYTES % 33.6 % (18.0-39.1); MEAN CORPUSCULAR HEMOGLOBIN 31.8 pg (28-32); MEAN CORPUSCULAR HGB CONC 33.6 g/dL (31-35); MEAN CORPUSCULAR VOLUME 94.7 fL (81-99); MONOCYTES # (AUTO) 0.8 (0.2-0.8); MONOCYTES % 9.2 % (4.4-11.3); NEUTROPHILS # (AUTO) 4.8 (2.1-6.9); NEUTROPHILS % 54.9 % (38.7-80.0); PLATELET COUNT 283 x10e3/uL (140-360); RED BLOOD COUNT 4.15 x10e6/uL (3.6-5.1); RED CELL DISTRIBUTION WIDTH 12.4 % (11.7-14.4)
--- NOTE | 2018-05-31 01:55 | Diagnostic Imaging Report ---
History: Headache Comparison studies: None Technique: Axial images were obtained from the skull base to the vertex. Coronal and sagittal reconstructions obtained from the axial data. Dose modulation, iterative reconstruction, and/or weight based adjustment of the mA/kV was utilized to reduce the radiation dose to as low as reasonably achievable. Findings: Scalp/skull: No abnormalities. No fractures, blastic or lytic lesions. Extra-axial spaces: No masses. No fluid collections. Brain sulci: Appropriate for age. Ventricles: Normal in size and configuration. No hydrocephalus. Parenchyma: No abnormal densities. No masses, hemorrhage, acute or chronic cortical vascular insults. Sellar/suprasellar region: No abnormalities Craniocervical junction: Patent foramen magnum. No Chiari one malformation. Mild atherosclerotic calcifications of the carotid siphons IMPRESSION: No acute abnormalities . Signed by: DR Hugo Torre M.D. on 05/31/2018 1:51 AM
[2018-05-31 02:09] LABS: CLARITY,URINE CLEAR (CLEAR); COLOR,URINE YELLOW (YELLOW); KETONES,URINE NEGATIVE (NEGATIVE); LEUKOCYTE ESTERASE ,URINE 2+ (NEGATIVE); NITRITE,URINE NEGATIVE (NEGATIVE); PROTEIN,URINE DIPSTICK NEGATIVE (NEGATIVE); URINE UROBILINOGEN 0.2 mg/dL (0.2 - 1)
[2018-05-31 02:10] LABS: BILIRUBIN,URINE NEGATIVE (NEGATIVE)
[2018-05-31 02:14] LABS: ALANINE AMINOTRANSFERASE 13 IU/L (0-55); ALBUMIN 3.9 g/dL (3.5-5.0); ALBUMIN/GLOBULIN RATIO 1.1 (0.8-2.0); ALKALINE PHOSPHATASE 72 IU/L (40-150); ANION GAP 13.7 mmol/L (8-16); BLOOD UREA NITROGEN 18 mg/dL (7-26); BUN/CREATININE RATIO 20 (6-25); CALCIUM 9.3 mg/dL (8.4-10.2); CARBON DIOXIDE 22 mmol/L (22-29); CHLORIDE 108 mmol/L (98-107); CREATINE KINASE 63 IU/L (29-168); EST GLOMERULAR FILTRATION RATE > 60 ML/MIN (60-); GLUCOSE 121 mg/dL (74-118); POTASSIUM 3.7 mmol/L (3.5-5.1); SODIUM 140 mmol/L (136-145)
[2018-05-31 02:20] LABS: BACTERIA,URINE FEW /HPF; EPITHELIAL CELLS,URINE FEW /LPF; RBC,URINE 0-5 /HPF (0-5); RENAL EPITHELIAL CELLS,URINE FEW; WBC,URINE (MAN) 21-50 /HPF (0-5)
[2018-05-31 02:21] LABS: TRANSITIONAL EPI CELLS,URINE MODERATE
--- NOTE | 2018-05-31 02:24 | Diagnostic Imaging Report ---
EXAMINATION: CHEST SINGLE (PORTABLE) INDICATION: Dizzy. COMPARISON: Chest x-ray 07/12/2017 FINDINGS: AP view TUBES and LINES: None. LUNGS: Lungs are well inflated. Lungs are clear. There is no evidence of pneumonia or pulmonary edema. PLEURA: No pleural effusion or pneumothorax. HEART AND MEDIASTINUM: The cardiomediastinal silhouette is unremarkable. BONES AND SOFT TISSUES: No acute osseous lesion. Soft tissues are unremarkable. UPPER ABDOMEN: No free air under the diaphragm. IMPRESSION: No acute thoracic abnormality. Signed by: DR. Bari Moseley MD on 05/31/2018 2:20 AM
--- NOTE | 2018-05-31 03:21 | Discharge Summary ---
Jessica abbasi, length (0:01) JEWELL SANDHU MD Job#: [id number] GE
[2018-05-31 03:30] VITALS: BP 125/74
== END 2018-05-31 03:51 | disposition home or self-care (01) ==
LOC: ER 00:20
DX: R42 Dizziness and giddiness (principal); R11.0 Nausea; N30.90 Cystitis, unspecified without hematuria; I10 Essential (primary) hypertension; J44.9 Chronic obstructive pulmonary disease, unspecified; K21.9 Gastro-esophageal reflux disease without esophagitis
CPT/HCPCS: 36415; 70450; 71045; 80053; 81001; 82550; 82553; 84484; 85025; 93005; 99284

== ENCOUNTER 2018-07-25 18:19 | Emergency (ER) | payer MEDICARE ==
[~2018-07-25] VITALS: Ht 154.9 cm; Wt 61.7 kg
--- OUTSIDE RECORDS SUMMARY | 2018-07-25 18:22 | XMS REPORT | Clinical Summary ---
Author Author [facility] Address Unknown Phone Unavailable Care Team Providers Care Stockkeeper Name Role Phone PCP Unavailable Allergies Comments [...] Not on file Results Not on fileafter 07/24/2017 Insurance Payer Benefit Subscriber ID Type Phone Address Plan / Group [employer] MED[employer] [facility] [employer] xxxxxxxxx CARE [facility] MEDICAID MEDICAID xxxxxxxxx Medicaid OF [place]
--- NOTE | 2018-07-25 20:59 | Diagnostic Imaging Report ---
EXAMINATION: ABDOMEN ACUTE SERIES W/PA CXR INDICATION: Abdominal pain. COMPARISON: Chest x-ray 07/25/2017, CT 10/01/2016. FINDINGS: AP view TUBES and LINES: None. LUNGS: Lungs are well inflated. Lungs are clear. There is no evidence of pneumonia or pulmonary edema. PLEURA: No pleural effusion or pneumothorax. HEART AND MEDIASTINUM: The cardiomediastinal silhouette is unremarkable. BONES AND SOFT TISSUES: No acute osseous lesion. Soft tissues are unremarkable. ABDOMEN: Cholecystectomy clips. Moderate amount of stool in colon. No evidence of obstruction. No free air under the diaphragm. IMPRESSION: No acute thoracic abnormality. Nonobstructive bowel gas pattern. Signed by: DR. Bari Moseley MD on 07/25/2018 8:56 PM
[2018-07-25 21:17] LABS: BASOPHILS # (AUTO) 0.1 (0.0-0.1); BASOPHILS % 0.6 % (0.0-1.0); EOSINOPHILS # (AUTO) 0.2 (0.0-0.4); EOSINOPHILS % 1.8 % (0.0-6.0); HEMOGLOBIN 13.2 g/dL (12.0-16.0); LYMPHOCYTES # (AUTO) 2.6 (1.0-3.2); LYMPHOCYTES % 26.7 % (18.0-39.1); MEAN CORPUSCULAR HEMOGLOBIN 31.2 pg (28-32); MEAN CORPUSCULAR VOLUME 94.6 fL (81-99); MONOCYTES # (AUTO) 0.8 (0.2-0.8); NEUTROPHILS % 62.4 % (38.7-80.0); PLATELET COUNT 260 x10e3/uL (140-360); RED BLOOD COUNT 4.23 x10e6/uL (3.6-5.1); RED CELL DISTRIBUTION WIDTH 12.2 % (11.7-14.4)
[2018-07-25 21:33] LABS: ALANINE AMINOTRANSFERASE 21 IU/L (0-55); ALBUMIN 4.2 g/dL (3.5-5.0); ALBUMIN/GLOBULIN RATIO 1.2 (0.8-2.0); ALKALINE PHOSPHATASE 101 IU/L (40-150); ANION GAP 12.7 mmol/L (8-16); BLOOD UREA NITROGEN 18 mg/dL (7-26); BUN/CREATININE RATIO 21 (6-25); CARBON DIOXIDE 22 mmol/L (22-29); CHLORIDE 106 mmol/L (98-107); CREATININE, SERUM 0.85 mg/dL (0.57-1.11); EST GLOMERULAR FILTRATION RATE > 60 ML/MIN (60-); GLUCOSE 125 mg/dL (74-118); POTASSIUM 3.7 mmol/L (3.5-5.1); SODIUM 137 mmol/L (136-145)
[2018-07-25 21:36] LABS: AMYLASE 91 U/L (25-125); LIPASE 28 U/L (8-78)
[2018-07-25 22:40] LABS: BILIRUBIN,URINE NEGATIVE (NEGATIVE); CLARITY,URINE CLEAR (CLEAR); COLOR,URINE YELLOW (YELLOW); KETONES,URINE NEGATIVE (NEGATIVE); LEUKOCYTE ESTERASE ,URINE TRACE (NEGATIVE); NITRITE,URINE NEGATIVE (NEGATIVE); PROTEIN,URINE DIPSTICK NEGATIVE (NEGATIVE); URINE UROBILINOGEN 0.2 mg/dL (0.2 - 1)
[2018-07-25 22:52] LABS: BACTERIA,URINE RARE /HPF; EPITHELIAL CELLS,URINE RARE /LPF; RBC,URINE 0-5 /HPF (0-5); WBC,URINE (MAN) 0-5 /HPF (0-5)
== END 2018-07-25 23:13 | disposition home or self-care (01) ==
LOC: ER 18:19
DX: R10.31 Right lower quadrant pain (principal); R10.32 Left lower quadrant pain; K59.00 Constipation, unspecified; I10 Essential (primary) hypertension; J44.9 Chronic obstructive pulmonary disease, unspecified; E03.9 Hypothyroidism, unspecified
CPT/HCPCS: 36415; 74022; 80053; 81001; 82150; 83690; 85025; 99284

== ENCOUNTER 2018-11-04 19:11 | Emergency (ER) | payer MEDICARE ==
[~2018-11-04] VITALS: Ht 154.9 cm; Wt 59.4 kg
--- OUTSIDE RECORDS SUMMARY | 2018-11-04 19:14 | XMS REPORT | Clinical Summary ---
Author Author [facility] Address Unknown Phone Unavailable Care Team Providers Care Furnace Combustion Analyst Name Role Phone PCP Unavailable Allergies Comments [...] Not on file Results Not on fileafter 11/03/2017 Insurance Payer Benefit Subscriber ID Type Phone Address Plan / Group [employer] MEDICARE [facility] [employer] xxxxxxxxx CARE [facility] MEDICAID MEDICAID xxxxxxxxx Medicaid OF [place]
[2018-11-04 21:20] LABS: CLARITY,URINE CLOUDY (CLEAR); COLOR,URINE YELLOW (YELLOW); LEUKOCYTE ESTERASE ,URINE 2+ (NEGATIVE)
[2018-11-04 21:21] LABS: BILIRUBIN,URINE NEGATIVE (NEGATIVE); KETONES,URINE NEGATIVE (NEGATIVE); NITRITE,URINE NEGATIVE (NEGATIVE); PROTEIN,URINE DIPSTICK 1+ (NEGATIVE); URINE UROBILINOGEN 0.2 mg/dL (0.2 - 1)
[2018-11-04 21:30] LABS: WBC,URINE (MAN) >50 /HPF (0-5)
[2018-11-04 21:31] LABS: AMORPHOUS SEDIMENT,URINE MODERATE (FEW); BACTERIA,URINE MANY /HPF; EPITHELIAL CELLS,URINE MANY /LPF
[2018-11-05 00:53] VITALS: BP 129/73
== END 2018-11-04 23:22 | disposition home or self-care (01) ==
LOC: ER 19:11
DX: R30.0 Dysuria (principal); N30.91 Cystitis, unspecified with hematuria; I10 Essential (primary) hypertension; J44.9 Chronic obstructive pulmonary disease, unspecified; E78.5 Hyperlipidemia, unspecified; E07.9 Disorder of thyroid, unspecified; K21.9 Gastro-esophageal reflux disease without esophagitis
CPT/HCPCS: 81001; 87086; 87186

== ENCOUNTER → 2022-05-09 | Outpatient (CLI) | payer MEDICARE | LOC: RAD 10:30 | PROVIDERS: ATTEND Internal Medicine | DX: S83.92XA Sprain of unspecified site of left knee, initial encounter (principal); M43.02 Spondylolysis, cervical region; S33.5XXA Sprain of ligaments of lumbar spine, initial encounter; M81.0 Age-related osteoporosis without current pathological fracture | CPT/HCPCS: 72050; 72110 ==

== ENCOUNTER → 2022-10-22 | Outpatient (CLI) | payer MEDICARE | LOC: MAMMO 07:42 | PROVIDERS: ATTEND Internal Medicine | DX: Z12.31 Encounter for screening mammogram for malignant neoplasm of breast (principal) | CPT/HCPCS: 77067 ==

== ENCOUNTER → 2024-01-22 | Outpatient (REF) | payer MEDICARE ==
[~2024-01-22] MED LIST changes: +PANTOPRAZOLE SO40 MG PO
== END ==
LOC: MAMMO 10:16
PROVIDERS: ATTEND Internal Medicine
DX: Z12.31 Encounter for screening mammogram for malignant neoplasm of breast (principal)
CPT/HCPCS: 77067

== ENCOUNTER 2024-03-21 07:44 | Emergency (ER) | payer MEDICARE ==
[~2024-03-21] VITALS: Ht 149.9 cm; Wt 51.7 kg
[2024-03-21 08:04] VITALS: TEMP 98.3
[2024-03-21] MEDS ORDERED: NEURONTIN100 MG PO (08:18)
[2024-03-21 08:54] VITALS: PULSE 80; RESP 16; O2SAT 99
== END 2024-03-21 08:50 | disposition home or self-care (01) ==
LOC: ER 07:59
DX: R20.0 Anesthesia of skin (principal); R20.2 Paresthesia of skin; I10 Essential (primary) hypertension; E78.5 Hyperlipidemia, unspecified; J44.9 Chronic obstructive pulmonary disease, unspecified; E03.9 Hypothyroidism, unspecified; K21.9 Gastro-esophageal reflux disease without esophagitis
CPT/HCPCS: 36415; 82948; 99283